=== PATIENT | male | born 1955 | race Caucasian/White ===

== ENCOUNTER 2017-05-09 17:29 | Emergency (ER) | payer BC ==
[~2017-05-09] VITALS: Ht 175.3 cm; Wt 77.1 kg
[~2017-05-09 17:29] MED LIST: CIPR25SS PO; FLAG500T PO; No Historical Meds; VICO5TAB PO; [UNRECOGNIZED DRUG - OTHER] PO
[2017-05-09] MEDS ORDERED: LIDOCAINE 2% MDV 20 ML VIAL SC ONE (18:30)
[2017-05-09] MEDS ORDERED: ceFAZolin 1GM INJ (J0690) IM ONE (18:30)
[2017-05-09] MEDS ORDERED: PERCOCET 5MG/325MG TAB PO ONE (18:30)
[2017-05-09] MEDS ORDERED: LIDOCAINE 2% MDV 20 ML VIAL As Ordered ONE (18:32)
[2017-05-09] MEDS ORDERED: ADACEL/BOOSTRIX VACCINE (DIPHTH/PERTUSS/ACELL/TETANUS)0.5ML SYR (90715) IM ONE (18:45)
--- NOTE | 2017-05-09 18:54 | REP ---
Clinical: Trauma. Technique: AP, lateral, bilateral oblique views of the left first digit. Findings: Laceration overlies the distal phalanx. No foreign body. Osseous structures demonstrate degenerative changes without acute fracture or dislocation. Impression: Laceration. Arthritic degenerative changes. No foreign body or fracture / dislocation. Signed by Yogesh Garcia MD 05/09/2017 06:46 P
[2017-05-09] MEDS ORDERED: KEFL500C17 PO (19:53)
[2017-05-09] MEDS ORDERED: PERC5TAB12 PO (19:53)
[2017-05-09 19:57] VITALS: BP 124/79
[2017-05-09] MEDS ORDERED: OXYCODONE/APAP 5MG/325MG(BULK FOR ED) 1 TABLET PO ONE (20:00)
== END 2017-05-09 20:12 | disposition home or self-care (01) ==
LOC: M ED 17:29
DX: S61.012A Laceration without foreign body of left thumb without damage to nail, initial encounter (principal); W31.2XXA Contact with powered woodworking and forming machines, initial encounter; Y92.008 Other place in unspecified non-institutional (private) residence as the place of occurrence of the external cause; Y93.H3 Activity, building and construction; Y99.8 Other external cause status; E11.9 Type 2 diabetes mellitus without complications; M54.5 Low back pain; K57.90 Diverticulosis of intestine, part unspecified, without perforation or abscess without bleeding
CPT/HCPCS: 12001; 73140; 90471; 90715; 96372; 99282; J0690

== ENCOUNTER → 2021-03-02 | Outpatient (REF) | payer MEDICARE, OTHER ==
[~2021-03-02] MED LIST changes: +KEFL500C17 PO; +PERC5TAB12 PO
== END ==
LOC: M SFHCPLAZ 15:02
DX: N52.9 Male erectile dysfunction, unspecified (principal)

== ENCOUNTER → 2021-03-21 | Outpatient (CLI) | payer MEDICARE, OTHER ==
--- NOTE | 2021-03-21 10:02 | REP ---
INDICATION: ENCOUNTER FOR SCREENING, UNSPECIFIED. COMPARISON: None. TECHNIQUE: Real-time sonographic evaluation of the abdominal aorta performed. FINDINGS: There is no sonographic evidence of abdominal aortic aneurysm. Maximum AP diameter of abdominal aorta: Proximal (at diaphragm):2.1 cm. At renal artery level: 1.7 cm Mid abdominal aorta:1.8 cm. Distal abdominal aorta (prebifurcation): 1.5 cm. Maximum AP diameter common iliac arteries: Right: 7 mm. Left: 7mm. IMPRESSION: No sonographic evidence of abdominal aortic aneurysm. <Electronically signed by Paul Villagran > 03/21/21 [id number]
== END ==
LOC: M RAD 08:31
PROVIDERS: ATTEND Student in an Organized Health Care Education/Training Program
DX: Z13.9 Encounter for screening, unspecified (principal)

== ENCOUNTER → 2021-09-18 | Outpatient (CLI) | payer MEDICARE ==
[2021-09-18 15:27] LABS: BASO % 0.6 % (0.0-1.0); EOS # 0.1 10^3/uL (0.0-0.5); EOS % 0.9 % (0.0-3.0); HEMATOCRIT 47.6 % (42.0-52.0); HEMOGLOBIN 15.3 g/dl (13.5-17.5); LYMPH # 2.5 10^3/uL (1.5-5.0); LYMPH % 39.3 % (24.0-44.0); MEAN CORPUSCULAR HEMOGLOBIN 29.4 pg (27.0-33.0); MEAN CORPUSCULAR HGB CONC 32.1 g/dl (32.0-36.5); MEAN CORPUSCULAR VOLUME 91.4 fl (80.0-96.0); MONO # 0.5 10^3/uL (0.0-0.8); NEUTROPHILS # 3.2 10^3/uL (1.5-8.5); NEUTROPHILS % 50.7 % (36.0-66.0); PLATELET COUNT, AUTOMATED 298 10^3/uL (150-450); RED BLOOD COUNT 5.21 10^6/uL (4.30-6.10); WHITE BLOOD COUNT 6.4 10^3/uL (4.0-10.0)
[2021-09-18 15:45] LABS: HEMOGLOBIN A1c 5.4 %
[2021-09-18 15:53] LABS: ALBUMIN 3.6 GM/DL (3.2-5.2); ALT/SGPT 22 U/L (12-78); BILIRUBIN,TOTAL 0.5 MG/DL (0.2-1.0); BLOOD UREA NITROGEN 12 MG/DL (7-18); CALCIUM LEVEL 8.8 MG/DL (8.8-10.2); CARBON DIOXIDE LEVEL 32 MEQ/L (21-32); CHLORIDE LEVEL 105 MEQ/L (98-107); CHOLESTEROL LEVEL 176 MG/DL (<200); CREATININE FOR GFR 0.69 MG/DL (0.70-1.30); GLOMERULAR FILTRATION RATE > 60.0 (>49); GLUCOSE, FASTING 99 MG/DL (70-100); HDL CHOLESTEROL 51 MG/DL (>40); LDL CHOLESTEROL 110 MG/DL (<100); NON-HDL-C 125 MG/DL; POTASSIUM SERUM 4.3 MEQ/L (3.5-5.1); SODIUM LEVEL 143 MEQ/L (136-145); TOTAL PROTEIN 6.5 GM/DL (6.4-8.2); TRIGLYCERIDES LEVEL 77 MG/DL (<150)
== END ==
LOC: M WUC 11:44
PROVIDERS: ATTEND Student in an Organized Health Care Education/Training Program
DX: N52.9 Male erectile dysfunction, unspecified (principal); Z71.89 Other specified counseling

== ENCOUNTER → 2021-10-16 | Outpatient (REF) | payer MEDICARE | LOC: M SFHCPLAZ 13:23 | PROVIDERS: ATTEND Family Medicine | DX: Z53.20 Procedure and treatment not carried out because of patient's decision for unspecified reasons (principal) ==

== ENCOUNTER → 2022-03-27 | Outpatient (CLI) | payer MEDICARE ==
[2022-03-27 12:14] LABS: HEPATITIS C VIRUS ABY INDEX 0.1 INDEX (<0.8); HIV 1&2 SCREEN CENTAUR NEGATIVE (NEGATIVE)
== END ==
LOC: M WUC 08:40
PROVIDERS: ATTEND Student in an Organized Health Care Education/Training Program
DX: Z13.9 Encounter for screening, unspecified (principal)

== ENCOUNTER → 2022-08-16 | Outpatient (REF) | payer MEDICARE | LOC: M SFHCPLAZ 17:43 | PROVIDERS: ATTEND Family Medicine | DX: L57.0 Actinic keratosis (principal) ==

== ENCOUNTER → 2024-02-18 | Outpatient (CLI) | payer MEDICARE ==
[2024-02-18 14:39] LABS: ALBUMIN 3.9 G/DL (3.2-5.2); ALKALINE PHOSPHATASE 52 U/L (46-116); ALT/SGPT 16 U/L (7.0-40); AST/SGOT 9 U/L (<34); BILIRUBIN,TOTAL 0.7 MG/DL (0.3-1.2); BLOOD UREA NITROGEN 12 MG/DL (9-23); CALCIUM LEVEL 8.7 MG/DL (8.3-10.6); CARBON DIOXIDE LEVEL 30 MMOL/L (20-31); CHLORIDE LEVEL 106 MMOL/L (98-107); CHOLESTEROL LEVEL 150 MG/DL (<200); CHOLESTEROL RISK RATIO 2.97 (<5); CREATININE FOR GFR 0.72 MG/DL (0.70-1.30); GLOMERULAR FILTRATION RATE > 60.0 (>49); GLUCOSE, FASTING 102 MG/DL (74-106); HDL CHOLESTEROL 50.4 MG/DL (>40); NON-HDL-C 99.6 MG/DL; POTASSIUM SERUM 4.1 MMOL/L (3.5-5.1); SODIUM LEVEL 141 MMOL/L (136-145); TOTAL PROTEIN 6.1 G/DL (5.7-8.2); TRIGLYCERIDES LEVEL 68 MG/DL (<150)
[2024-02-18 14:41] LABS: TESTOSTERONE 560 NG/DL (241-827)
[2024-02-18 16:00] LABS: HEMOGLOBIN A1c 5.1 % (4.0-6.0)
== END ==
LOC: M WUC 09:52
PROVIDERS: ATTEND Family Medicine
DX: Z13.1 Encounter for screening for diabetes mellitus (principal); I25.10 Atherosclerotic heart disease of native coronary artery without angina pectoris; N52.9 Male erectile dysfunction, unspecified

== ENCOUNTER 2024-12-14 09:27 | Day surgery (SDC) | payer MEDICARE ==
[~2024-12-14] VITALS: Ht 175.3 cm; Wt 69.2 kg
[~2024-12-14 09:27] MED LIST changes: +VITA100093 PO; +ZINC100T3 PO
[2024-12-14] MEDS ORDERED: LIDOCAINE 2% 100MG/5ML SDV (FOR ANES.) As Ordered ONE (09:41)
[2024-12-14] MEDS ORDERED: SUGAMMADEX SODIUM 500 MG/5 ML VIAL (BRIDION) As Ordered ONE (09:41)
[2024-12-14] MEDS ORDERED: ROCURONIUM BROMIDE 50MG/5ML VIAL As Ordered ONE (09:41)
[2024-12-14] MEDS ORDERED: GLYCOPYRROLATE INJ 0.2 MG/ML 2 ML VIAL As Ordered ONE (09:41)
[2024-12-14] MEDS ORDERED: propofoL 200 MG/20 ML VIAL As Ordered ONE (09:41)
[2024-12-14] MEDS ORDERED: METOCLOPRAMIDE INJ 10MG/2ML VIAL As Ordered ONE (09:42)
[2024-12-14] MEDS ORDERED: KETOROLAC 60MG 2ML VIAL As Ordered ONE (09:42)
[2024-12-14] MEDS ORDERED: ONDANSETRON 4MG 2ML VIAL As Ordered ONE (09:42)
[2024-12-14] MEDS ORDERED: MIDAZOLAM INJ 2MG/2ML VIAL As Ordered ONE (09:43)
[2024-12-14] MEDS ORDERED: fentaNYL 100 MCG/2 ML INJECTION As Ordered ONE (09:43)
[2024-12-14] MEDS: NS (Normal Saline) 0.9% 1,000 ML IV SCH (10:45)
[2024-12-14] MEDS: HEPARIN SOD (PORCINE) 5000UNITS/ML 1ML VIAL/SYRINGE SQ ONE (11:08)
[2024-12-14] MEDS: ceFAZolin SOD 2 GM in IV 1 EA IV ONE (11:08)
[2024-12-14] MEDS ORDERED: ACETAMINOPHEN 1000MG/100ML IV BAG As Ordered ONE (11:19)
[2024-12-14] MEDS ORDERED: ONDANSETRON 4MG 2ML VIAL IV PRN (12:25)
[2024-12-14] MEDS ORDERED: HYDROMORPHONE HCL 0.5 MG/ 0.5 ML SYRINGE IV PRN (12:25)
[2024-12-14] MEDS ORDERED: fentaNYL 100 MCG/2 ML INJECTION IV PRN (12:25)
[2024-12-14] MEDS ORDERED: NS (Normal Saline) 0.9% 1,000 ML IV SCH (12:25)
[2024-12-14] MEDS ORDERED: oxyCODONE 5MG TAB PO PRN (12:25)
[2024-12-14 13:33] VITALS: BP 136/76; TEMP 97.8; O2SAT 97
== END 2024-12-14 13:36 | disposition home or self-care (01) ==
LOC: M SDC 09:27
PROVIDERS: ATTEND Surgery
DX: K40.30 Unilateral inguinal hernia, with obstruction, without gangrene, not specified as recurrent (principal)
CPT/HCPCS: 49650; 93005; C1781; J0131; J0665; J0690; J1100; J1596; J1885; J2250; J2405; J2765; J3010; S2900

== ENCOUNTER → 2025-02-22 | Outpatient (CLI) | payer MEDICARE ==
[2025-02-22 13:24] LABS: ALBUMIN 3.8 G/DL (3.2-5.2); ALKALINE PHOSPHATASE 56 U/L (40-129); ALT/SGPT 19 U/L (7.0-40); AST/SGOT 14 U/L (<34); BILIRUBIN,TOTAL 0.8 MG/DL (0.3-1.2); BLOOD UREA NITROGEN 17 MG/DL (9-23); CALCIUM LEVEL 8.9 MG/DL (8.3-10.6); CARBON DIOXIDE LEVEL 29 MMOL/L (20-31); CHLORIDE LEVEL 104 MMOL/L (98-107); CHOLESTEROL LEVEL 171 MG/DL (<200); CHOLESTEROL RISK RATIO 3.07 (<5); CREATININE FOR GFR 0.71 MG/DL (0.70-1.30); GLOMERULAR FILTRATION RATE > 90.0 (>42); GLUCOSE, FASTING 95 MG/DL (74-106); HDL CHOLESTEROL 55.6 MG/DL (>40); LDL CHOLESTEROL 98.8 MG/DL (<100); NON-HDL-C 115.4 MG/DL; POTASSIUM SERUM 4.3 MMOL/L (3.5-5.1); SODIUM LEVEL 142 MMOL/L (136-145); TOTAL PROTEIN 6.5 G/DL (5.7-8.2); TRIGLYCERIDES LEVEL 83 MG/DL (<150)
[2025-02-22 13:30] LABS: HEMOGLOBIN A1c 5.3 % (4.0-6.0)
== END ==
LOC: M WUC 10:47
PROVIDERS: ATTEND Family Medicine
DX: I25.10 Atherosclerotic heart disease of native coronary artery without angina pectoris (principal); N52.9 Male erectile dysfunction, unspecified; Z13.1 Encounter for screening for diabetes mellitus

== ENCOUNTER 2025-09-20 09:51 | Inpatient (IN) | payer MEDICARE ==
[~2025-09-20] VITALS: Ht 175.3 cm; Wt 65.8 kg
[2025-09-20] MEDS: MORPHINE 2 MG/ML 1 ML VIAL IV PRN (10:23)
[2025-09-20] MEDS: ONDANSETRON 4MG/2ML VIAL IV ONE (10:23)
[2025-09-20 12:14] LABS: PLATELET COUNT, AUTOMATED 296 10^3/uL (150-450)
[2025-09-20 12:45] LABS: CALCIUM LEVEL 8.3 MG/DL (8.3-10.6); CARBON DIOXIDE LEVEL 28 MMOL/L (20-31); CHLORIDE LEVEL 105 MMOL/L (98-107); CREATININE FOR GFR 0.69 MG/DL (0.70-1.30); GLOMERULAR FILTRATION RATE > 90.0 (>42); POTASSIUM SERUM 4.4 MMOL/L (3.5-5.1); SODIUM LEVEL 142 MMOL/L (136-145)
[2025-09-20] MEDS ORDERED: HOME MED LIST COMPLETE! XX SCH (12:45)
[2025-09-20] MEDS ORDERED: MIRALAX *UNIT DOSE* 17 GM PACKET PO PRN (13:35)
[2025-09-20] MEDS ORDERED: SENNA 8.6 MG TAB PO PRN (13:35)
[2025-09-20] MEDS: ACETAMINOPHEN *IV* 1,000 MG in IV 1 EA IV PRN (16:25)
[2025-09-20] MEDS: MORPHINE 4 MG/ML 1 ML VIAL IV PRN (18:03)
[2025-09-20] MEDS ORDERED: ONDANSETRON 4MG/2ML VIAL IV PRN (21:50)
[2025-09-21 01:35] VITALS: BP 150/67; TEMP 98.5; O2SAT 96
[2025-09-21 06:30] LABS: PLATELET COUNT, AUTOMATED 305 10^3/uL (150-450)
[2025-09-21 06:44] VITALS: BP 132/67; TEMP 98.3; O2SAT 95
[2025-09-21 06:50] LABS: CALCIUM LEVEL 8.3 MG/DL (8.3-10.6); CARBON DIOXIDE LEVEL 26 MMOL/L (20-31); CHLORIDE LEVEL 106 MMOL/L (98-107); CREATININE FOR GFR 0.63 MG/DL (0.70-1.30); GLOMERULAR FILTRATION RATE > 90.0 (>42); POTASSIUM SERUM 4.6 MMOL/L (3.5-5.1); SODIUM LEVEL 142 MMOL/L (136-145)
[2025-09-21] MEDS: ENOXAPARIN 30 MG/0.3 ML SYRINGE (J1650 PER 10MG) SC SCH (09:02)
[2025-09-21 14:00] VITALS: BP 136/75; TEMP 97.9; O2SAT 98
[2025-09-21] MEDS ORDERED: PERC7.5T11 PO (15:53)
[2025-09-21] MEDS ORDERED: COLA100C5 PO (15:55)
[2025-09-21] MEDS ORDERED: MIRA3350 PO (15:55)
[2025-09-21] MEDS ORDERED: MILKSUS3 PO (15:55)
== END 2025-09-21 17:18 | disposition home or self-care (01) | DRG 552 ==
LOC: M ED 09:51 → M ED INP 09:52 → M MS5PR 09-21 01:32 → OBSVTOIN 09-21 10:54
PROVIDERS: ADMIT Student in an Organized Health Care Education/Training Program; ATTEND General Practice
PROC: 2W35X3Z Immobilization of Back using Brace (ICD-10-PCS; principal; 2025-09-21)
DX: S32.010A Wedge compression fracture of first lumbar vertebra, initial encounter for closed fracture (principal); S22.089A Unspecified fracture of T11-T12 vertebra, initial encounter for closed fracture; W14.XXXA Fall from tree, initial encounter; Y93.59 Activity, other involving other sports and athletics played individually

== ENCOUNTER → 2025-11-08 | Outpatient (CLI) | payer MEDICARE ==
[~2025-11-08] MED LIST changes: +COLA100C5 PO; +MILKSUS3 PO; +MIRA3350 PO; +PERC7.5T11 PO
== END ==
LOC: M RAD 09:07
PROVIDERS: ATTEND Physician Assistant
DX: S32.010D Wedge compression fracture of first lumbar vertebra, subsequent encounter for fracture with routine healing (principal); M47.816 Spondylosis without myelopathy or radiculopathy, lumbar region